=== PATIENT | female | born 1960 | race African-American/Black ===

== ENCOUNTER 2018-02-12 12:30 | Inpatient (IN) | payer OTHER ==
[~2018-02-12] VITALS: Ht 152.4 cm; Wt 98.6 kg
[2018-02-12 13:37] LABS: Basophils # (auto) 0 uL; Basophils % (auto) 0.3 % (0.0-2.0); Eosinophils # (auto) 0 uL; Eosinophils % (auto) 0.4 % (0.0-7.0); Hemoglobin 14.5 g/dL (12.2-16.2); Lymphocytes # (auto) 1.8 uL; Lymphocytes % (auto) 19.7 % (10.0-50.0); Mean Corpuscular Hemoglobin 30.2 pg (28.0-32.0); Mean Corpuscular Hgb Conc. 33.7 g/dL (32.0-36.0); Mean Corpuscular Volume 89.7 fL (80.0-100.0); Monocytes # (auto) 0.5 uL; Neutrophils % (auto) 74.6 % (37.0-80.0); Nucleated Red Blood Cells % 0.1 %; Platelet Count (auto) 243 10^3/uL (140-450); Red Cell Distribution Width 14.1 % (11.8-14.3); White Blood Cell 9.4 10^3/uL (4.4-10.8)
[2018-02-12 13:50] LABS: INR 0.94 (0.9-1.15); Partial Thromboplastin Time 27.6 sec (23.78-33.04); Prothrombin Time 10.1 sec (9.27-12.13)
[2018-02-12 13:53] LABS: Alanine Aminotransferase 32 U/L (13-56); Albumin 3.5 g/dL (3.4-5.0); Alkaline Phosphatase 87 U/L (45-117); Anion Gap 4 (5-15); Aspartate Aminotransferase 16 U/L (15-37); Bilirubin, Total 0.3 mg/dL (0.2-1.0); Blood Urea Nitrogen 18 mg/dL (7-18); Calcium 9.8 mg/dL (8.5-10.1); Carbon Dioxide 29 mmol/L (21-32); Chloride 106 mmol/L (98-107); GFR African American 69 mL/min; GFR Non-African American 57 mL/min; Glucose 125 mg/dL (74-106); Magnesium 2.6 mg/dL (1.6-2.6); Potassium 3.1 mmol/L (3.5-5.1); Sodium 139 mmol/L (136-145); Total Protein 7.6 g/dL (6.4-8.2)
[2018-02-12 14:31] LABS: Urine WBC None Seen /hpf (0 - 5)
[2018-02-12 14:37] LABS: Urine Bacteria FEW /hpf (None Seen); Urine Blood Negative /uL (Negative); Urine Hyaline Cast FEW /lpf (0 - 2); Urine Mucus FEW (None Seen); Urine Specific Gravity 1.019 (1.001-1.035)
[2018-02-12] MEDS ORDERED: POTASSIUM CHL 20 Meq TABLET PO ONE ×2 (16:30)
[2018-02-12] MEDS ORDERED: ACETAMINOPHEN 500 MG TAB PO PRN (16:30)
[2018-02-12] MEDS ORDERED: ONDANSETRON HCL 4 MG/2 ML VIAL IV PRN (16:30)
[2018-02-12] MEDS ORDERED: MORPHINE SULF INJ 2 MG/ML SYRINGE 1ML IV PRN (16:30)
[2018-02-12] MEDS ORDERED: LACTULOSE 20Gm/30ML SOLN PO PRN (16:30)
[2018-02-12] MEDS ORDERED: traMADol HCL 50 MG TAB PO PRN (16:30)
[2018-02-12] MEDS ORDERED: NITROGLYCERIN 0.4 MG SL TAB SL PRN (16:30)
[2018-02-12] MEDS ORDERED: KETOROLAC TROMETH 30 MG/ML 1ML VIAL IV PRN (16:30)
[2018-02-12] MEDS ORDERED: LABETALOL HCL 5 MG/ML ML 20ML VIAL IV PRN (16:30)
[2018-02-12] MEDS: SODIUM CHLORIDE 0.9% 1,000 ML IV SCH (16:56)
[2018-02-12 17:36] LABS: CRP High Sensitivity 0.51 mg/dL (< 0.3)
[2018-02-12 17:50] LABS: Folate (Folic Acid) 15.28 ng/mL (5.38-24)
[2018-02-12 21:00] VITALS: BP 127/76
[2018-02-12 22:00] VITALS: BP 127/76
[2018-02-12] MEDS: LORazepam 0.5 MG TAB PO PRN (23:37)
[2018-02-13 05:00] VITALS: BP 133/72
[2018-02-13] MEDS: SODIUM CHLORIDE 0.9% 1,000 ML IV SCH (05:00)
[2018-02-13] MEDS ORDERED: HYDR25TA4 PO (06:52)
[2018-02-13] MEDS ORDERED: FURO20TA3 PO (06:52)
[2018-02-13 08:31] VITALS: BP 144/85
[2018-02-13] MEDS: ENALAPRIL MALEATE 2.5 MG TAB PO SCH (09:32)
[2018-02-13] MEDS: ASPirin 81 mg TAB PO SCH (09:32)
[2018-02-13] MEDS: PANTOPRAZOLE 40 MG TAB PO SCH (09:32)
[2018-02-13] MEDS: ENOXAPARIN SOD 40 MG/0.4 ML SYRINGE SC SCH (09:33)
[2018-02-13 12:30] VITALS: BP 130/70
[2018-02-13] MEDS ORDERED: LEVOFLOXACIN 500MG 100 ML IV ONE (14:15)
[2018-02-13] MEDS ORDERED: DEXTROSE (50%) 50ML SYRG IV PRN (14:30)
[2018-02-13] MEDS ORDERED: TEMAZEPAM 15 MG CAP PO PRN (15:00)
[2018-02-13 16:18] VITALS: BP 125/74
[2018-02-13] MEDS: ACCU-CHEK COMFORT CURVE STRIP VI SCH ×2 (16:51→22:00)
[2018-02-13] MEDS: InsuLIN REG 1unit/0.01ml Soln (100units/ml) SC SCH ×2 (16:52→22:00)
[2018-02-13 16:57] LABS: BUN/Creatinine Ratio 19.5; Calcium 9.2 mg/dL (8.5-10.1)
[2018-02-13 19:10] LABS: Alcohol, Urine < 3.0 mg/dL (0-5); Amphetamine Screen, Urine NEGATIVE (NEGATIVE); Barbiturate Scree,Urine NEGATIVE (NEGATIVE); Benzodiazephine Screen, Urine NEGATIVE (NEGATIVE); Cannabinoid Screen, Urine NEGATIVE (NEGATIVE); Cocaine Screen, Urine NEGATIVE (NEGATIVE); Opiate Scree,Urine NEGATIVE (NEGATIVE); Phencyclidine Screen, Urine NEGATIVE (NEGATIVE)
[2018-02-13 20:00] VITALS: BP 144/85
[2018-02-13] MEDS ORDERED: LORazepam 2MG/ML-1ML VIAL IV PRN (20:30)
[2018-02-13 22:02] VITALS: BP 114/64
[2018-02-14 06:09] VITALS: BP 128/75
[2018-02-14] MEDS: ACCU-CHEK COMFORT CURVE STRIP VI SCH ×4 (07:00→22:00)
[2018-02-14] MEDS: InsuLIN REG 1unit/0.01ml Soln (100units/ml) SC SCH ×4 (07:00→22:00)
[2018-02-14 07:38] LABS: Basophils # (auto) 0 uL; Basophils % (auto) 0.5 % (0.0-2.0); Eosinophils # (auto) 0.1 uL; Eosinophils % (auto) 1.2 % (0.0-7.0); Hematocrit 40.3 % (36.0-46.0); Hemoglobin 13.6 g/dL (12.2-16.2); Lymphocytes % (auto) 35.5 % (10.0-50.0); Mean Corpuscular Hemoglobin 30.9 pg (28.0-32.0); Mean Corpuscular Hgb Conc. 33.8 g/dL (32.0-36.0); Mean Corpuscular Volume 91.2 fL (80.0-100.0); Monocytes # (auto) 0.4 uL; Monocytes % (auto) 6.9 % (0.0-12.0); Neutrophils # (auto) 3.2 uL; Neutrophils % (auto) 55.9 % (37.0-80.0); Platelet Count (auto) 225 10^3/uL (140-450); Red Blood Cells 4.42 10^6/uL (4.0-5.20); Red Cell Distribution Width 14.1 % (11.8-14.3); White Blood Cell 5.7 10^3/uL (4.4-10.8)
[2018-02-14 07:54] LABS: BUN/Creatinine Ratio 20.9; Bilirubin, Total 0.5 mg/dL (0.2-1.0); Calcium 9.1 mg/dL (8.5-10.1); Total Protein 6.6 g/dL (6.4-8.2)
[2018-02-14 08:29] LABS: Potassium 3.7 mmol/L (3.5-5.1)
[2018-02-14 08:30] VITALS: BP 153/92
[2018-02-14] MEDS: PANTOPRAZOLE 40 MG TAB PO SCH (09:35)
[2018-02-14] MEDS: ASPirin 81 mg TAB PO SCH (09:35)
[2018-02-14] MEDS: ENALAPRIL MALEATE 2.5 MG TAB PO SCH (09:36)
[2018-02-14] MEDS: ENOXAPARIN SOD 40 MG/0.4 ML SYRINGE SC SCH (09:36)
[2018-02-14] MEDS ORDERED: LEVOFLOXACIN 500MG 100 ML IV SCH (10:00)
[2018-02-14 13:00] VITALS: BP 134/79
[2018-02-14 16:55] VITALS: BP 134/82
[2018-02-14 22:00] VITALS: BP 143/85
[2018-02-14] MEDS: LORazepam 0.5 MG TAB PO PRN (22:21)
[2018-02-15 05:00] VITALS: BP 133/78
[2018-02-15] MEDS: InsuLIN REG 1unit/0.01ml Soln (100units/ml) SC SCH ×3 (06:00→17:00)
[2018-02-15] MEDS: ACCU-CHEK COMFORT CURVE STRIP VI SCH ×3 (06:11→17:00)
[2018-02-15 07:19] LABS: Basophils # (auto) 0 uL; Basophils % (auto) 0.4 % (0.0-2.0); Eosinophils # (auto) 0.1 uL; Eosinophils % (auto) 1.3 % (0.0-7.0); Hematocrit 42.1 % (36.0-46.0); Hemoglobin 14.2 g/dL (12.2-16.2); Lymphocytes # (auto) 1.9 uL; Lymphocytes % (auto) 33.4 % (10.0-50.0); Mean Corpuscular Hemoglobin 30.6 pg (28.0-32.0); Mean Corpuscular Hgb Conc. 33.7 g/dL (32.0-36.0); Mean Corpuscular Volume 90.7 fL (80.0-100.0); Monocytes # (auto) 0.5 uL; Neutrophils # (auto) 3.3 uL; Neutrophils % (auto) 56.9 % (37.0-80.0); Nucleated Red Blood Cells % 0.1 %; Platelet Count (auto) 236 10^3/uL (140-450); Red Blood Cells 4.64 10^6/uL (4.0-5.20); Red Cell Distribution Width 14.4 % (11.8-14.3); White Blood Cell 5.7 10^3/uL (4.4-10.8)
[2018-02-15 07:39] LABS: BUN/Creatinine Ratio 16.9; Calcium 9.2 mg/dL (8.5-10.1)
[2018-02-15 08:47] VITALS: BP 151/83
[2018-02-15] MEDS: PANTOPRAZOLE 40 MG TAB PO SCH (09:27)
[2018-02-15] MEDS: ASPirin 81 mg TAB PO SCH (09:27)
[2018-02-15] MEDS: ENALAPRIL MALEATE 2.5 MG TAB PO SCH (09:28)
[2018-02-15] MEDS: ENOXAPARIN SOD 40 MG/0.4 ML SYRINGE SC SCH (09:28)
[2018-02-15] MEDS ORDERED: LEVOFLOXACIN 500 MG TAB PO SCH (10:00)
[2018-02-15 13:00] VITALS: BP 158/87
[2018-02-15 16:00] VITALS: BP 137/84
[2018-02-15 16:07] VITALS: BP 137/84
[2018-02-15 17:00] VITALS: BP_SYST 130
== END 2018-02-15 19:36 | disposition home or self-care (01) | DRG 194 ==
LOC: ER 12:30 → EDBD 12:30 → TELE 12:31 → TELE-EAST 19:40
PROVIDERS: ADMIT Internal Medicine; ATTEND Internal Medicine
DX: I11.0 Hypertensive heart disease with heart failure (principal); E11.21 Type 2 diabetes mellitus with diabetic nephropathy; R55 Syncope and collapse; I50.9 Heart failure, unspecified; E87.6 Hypokalemia; E44.1 Mild protein-calorie malnutrition; E78.5 Hyperlipidemia, unspecified; F17.200 Nicotine dependence, unspecified, uncomplicated; G47.10 Hypersomnia, unspecified; Z82.0 Family history of epilepsy and other diseases of the nervous system; Z82.3 Family history of stroke; Z82.49 Family history of ischemic heart disease and other diseases of the circulatory system; Z90.710 Acquired absence of both cervix and uterus; Z83.3 Family history of diabetes mellitus; Z68.41 Body mass index [BMI] 40.0-44.9, adult; E66.9 Obesity, unspecified
CPT/HCPCS: 36415; 70450; 70551; 71045; 71046; 80048; 80053; 80307; 81001; 82550; 82607; 82746; 82962; 83036; 83735; 83880; 84443; 84484; 85025; 85379; 85610; 85652; 85730; 86141; 87086; 93005; 93306; 93886; 95819; 96361; 96365; 96366; A6257; J1956